=== PATIENT | female | born 1970 | race Caucasian/White ===

== ENCOUNTER → 2018-06-12 | Outpatient (CLI) | payer OTHER ==
[~2018-06-12] MED LIST: ACET500 PO; CODACE30 PO; IBUP800 PO; Ultram50 MG PO
[2018-06-14 16:08] LABS: HPV 16 Negative (Negative); HPV 18 Negative (Negative); HPV OTHER HR TYPES Negative (Negative)
== END ==
LOC: LAB 16:33 → LAB SHORT 16:33
PROVIDERS: Obstetrics & Gynecology
DX: Z01.419 Encounter for gynecological examination (general) (routine) without abnormal findings (principal)
CPT/HCPCS: 87624; G0123

== ENCOUNTER 2021-08-04 03:43 | Emergency (ER) | payer OTHER ==
[~2021-08-04] VITALS: Ht 167.6 cm; Wt 81.7 kg
[2021-08-04 04:17] LABS: Source, Urine Clean Catch
[2021-08-04 04:20] LABS: BASOPHILS ABSOLUTE AUTO 0.04 K/mm3 (0.00-0.23); BASOPHILS PERCENT AUTO 0 % (0-2); EOSINOPHILS ABSOLUTE AUTO 0.06 K/mm3 (0.00-0.68); EOSINOPHILS PERCENT AUTO 1 % (0-6); Hematocrit 36.2 % (33.0-51.0); Hemoglobin 10.9 g/dL (11.5-16.0); IMMATURE GRAN ABSOLUTE AUTO 0.04 K/mm3 (0.00-0.10); IMMATURE GRAN PERCENT AUTO 0 % (0-1); LYMPHOCYTES ABSOLUTE AUTO 1.28 K/mm3 (0.84-5.20); LYMPHOCYTES PERCENT AUTO 11 % (21-46); MONOCYTES ABSOLUTE AUTO 0.56 K/mm3 (0.16-1.47); MONOCYTES PERCENT AUTO 5 % (4-13); Mean Corpuscular HGB 22.2 pg (26.0-34.0); Mean Corpuscular HGB Conc 30.1 g/dL (31.5-36.5); Mean Corpuscular Volume 74 fL (80-100); Mean Platelet Volume 10.6 fL (9.1-12.4); NEUTROPHILS PERCENT AUTO 82 % (41-73); Platelet Count 291 K/mm3 (150-400); RDW Coefficient Variation 15.9 % (11.7-14.2); RDW Standard Deviation 42.2 fL (35.1-46.3); White Blood Cell Count 11.18 K/mm3 (4.00-11.30)
[2021-08-04 04:30] LABS: Bilirubin, Urine Neg (Neg); Blood, Urine 4+ (Neg); Glucose Qualitative, Urine Neg (Neg); Ketones, Urine 3+ (Neg); Leukocyte Esterase, Urine Neg (Neg); Nitrite, Urine Neg (Neg); Protein, Urine Neg (Neg); Urobilinogen, Urine NORM (Normal)
[2021-08-04 04:40] LABS: Alanine Aminotransfer (ALT/SGP 28 U/L (12-78); Albumin, Blood 3.5 g/dL (3.4-5.0); Albumin/Globulin Ratio 0.9 (0.8-1.8); Alk Phos 60 U/L (50-136); Anion Gap 7 mmol/L (6-16); Aspartate Aminotrans (AST/SGOT 17 U/L (12-37); Bilirubin, Total 0.3 mg/dL (0.1-1.0); Blood Urea Nitrogen 25 mg/dL (8-24); CO2, Blood 22 mmol/L (21-32); Calcium, Blood 8.9 mg/dL (8.5-10.1); Chloride, Blood 110 mmol/L (98-108); Creatinine, Blood 0.71 mg/dL (0.40-1.00); Globulin, Blood 3.9 g/dL (2.2-4.0); Glomerular Filtration Rate >60 (60-); Glucose, Blood 125 mg/dL (70-99); Sodium, Blood 139 mmol/L (136-145); Total Protein, Blood 7.4 g/dL (6.4-8.2)
[2021-08-04 04:53] LABS: Appearance, Urine Clear (Clear); Color, Urine Yellow (P-Yellow)
[2021-08-04 04:54] LABS: Amorphous Light (0-Heavy); Bacteria Few /hpf; Mucus Light (0-Heavy); Squamous Epithelial Cells Few /hpf (Few); White Blood Cells, Urine Rare /hpf (0-5)
[2021-08-04] MEDS ORDERED: IBU600 MG PO (05:46)
[2021-08-04 07:01] LABS: Candida species (DNA Probe) Negative (NEGATIVE); G. vaginalis (DNA Probe) Positive (NEGATIVE); T. vaginalis (DNA Probe) Negative (NEGATIVE)
== END 2021-08-04 06:29 | disposition home or self-care (01) ==
LOC: ER 03:43
PROVIDERS: Emergency Medicine
DX: D25.9 Leiomyoma of uterus, unspecified (principal); Z87.891 Personal history of nicotine dependence
CPT/HCPCS: 36415; 76856; 80053; 81001; 81025; 83605; 85025; 87480; 87510; 87660; J1885; J7030

== ENCOUNTER 2021-08-10 22:41 | Emergency (ER) | payer OTHER ==
[~2021-08-10] VITALS: Ht 167.6 cm; Wt 81.7 kg
[~2021-08-10 22:41] MED LIST changes: +IBU600 MG PO
[2021-08-10] MEDS ORDERED: FLAGYL500 M1 PO (23:36)
== END 2021-08-11 01:19 | disposition home or self-care (01) ==
LOC: ER 22:41
DX: D25.9 Leiomyoma of uterus, unspecified (principal); N76.0 Acute vaginitis; B96.89 Other specified bacterial agents as the cause of diseases classified elsewhere; Z87.891 Personal history of nicotine dependence
CPT/HCPCS: 96374; 99283-25; A9270; J2270

== ENCOUNTER 2021-08-15 05:34 | Emergency (ER) | payer OTHER ==
[~2021-08-15] VITALS: Ht 167.6 cm; Wt 81.7 kg
[~2021-08-15 05:34] MED LIST changes: +FLAGYL500 M1 PO
[2021-08-15 07:14] LABS: Source, Urine Clean Catch
[2021-08-15 07:18] LABS: BASOPHILS ABSOLUTE AUTO 0.04 K/mm3 (0.00-0.23); BASOPHILS PERCENT AUTO 0 % (0-2); EOSINOPHILS ABSOLUTE AUTO 0.08 K/mm3 (0.00-0.68); EOSINOPHILS PERCENT AUTO 1 % (0-6); Hematocrit 35.6 % (33.0-51.0); Hemoglobin 11.1 g/dL (11.5-16.0); IMMATURE GRAN ABSOLUTE AUTO 0.09 K/mm3 (0.00-0.10); IMMATURE GRAN PERCENT AUTO 1 % (0-1); LYMPHOCYTES ABSOLUTE AUTO 1.32 K/mm3 (0.84-5.20); LYMPHOCYTES PERCENT AUTO 10 % (21-46); MONOCYTES ABSOLUTE AUTO 1.42 K/mm3 (0.16-1.47); MONOCYTES PERCENT AUTO 11 % (4-13); Mean Corpuscular HGB 22.7 pg (26.0-34.0); Mean Corpuscular HGB Conc 31.2 g/dL (31.5-36.5); Mean Corpuscular Volume 73 fL (80-100); Mean Platelet Volume 10.5 fL (9.1-12.4); NEUTROPHILS PERCENT AUTO 77 % (41-73); Platelet Count 323 K/mm3 (150-400); RDW Coefficient Variation 15.7 % (11.7-14.2); RDW Standard Deviation 40.4 fL (35.1-46.3); Red Blood Cell Count 4.88 M/mm3 (3.80-5.20); White Blood Cell Count 12.65 K/mm3 (4.00-11.30)
[2021-08-15 07:27] LABS: Bilirubin, Urine Neg (Neg); Blood, Urine 5+ (Neg); Glucose Qualitative, Urine Neg (Neg); Ketones, Urine 4+ (Neg); Leukocyte Esterase, Urine 2+ (Neg); Nitrite, Urine Neg (Neg); Protein, Urine 2+ (Neg); Specific Gravity, Urine 1.015 (1.003-1.022); Urobilinogen, Urine NORM (Normal)
[2021-08-15 07:38] LABS: Alanine Aminotransfer (ALT/SGP 19 U/L (12-78); Albumin, Blood 3.1 g/dL (3.4-5.0); Albumin/Globulin Ratio 0.8 (0.8-1.8); Alk Phos 89 U/L (50-136); Anion Gap 11 mmol/L (6-16); Aspartate Aminotrans (AST/SGOT 22 U/L (12-37); Bilirubin, Total 0.5 mg/dL (0.1-1.0); Blood Urea Nitrogen 17 mg/dL (8-24); Bun/Creatinine Ratio 26.6 (12.0-20.0); CO2, Blood 20 mmol/L (21-32); Calcium, Blood 9.8 mg/dL (8.5-10.1); Chloride, Blood 108 mmol/L (98-108); Creatinine, Blood 0.64 mg/dL (0.40-1.00); Globulin, Blood 3.9 g/dL (2.2-4.0); Glomerular Filtration Rate >60 (60-); Glucose, Blood 98 mg/dL (70-99); Potassium, Blood 3.5 mmol/L (3.5-5.5); Sodium, Blood 139 mmol/L (136-145)
[2021-08-15 07:58] LABS: Appearance, Urine Hazy (Clear); Color, Urine Yellow (P-Yellow)
[2021-08-15 07:59] LABS: Bacteria Few /hpf; Red Blood Cells, Urine 50-100 /hpf (0-2); Squamous Epithelial Cells Few /hpf (Few)
[2021-08-15 08:00] LABS: Mucus Light (0-Heavy)
[2021-08-15] MEDS ORDERED: HYDMOR2 PO ×2 (09:15→09:17)
[2021-08-15] MEDS ORDERED: PROM25 PO ×2 (09:15→09:17)
== END 2021-08-15 09:24 | disposition home or self-care (01) ==
LOC: ER 05:34
PROVIDERS: Student in an Organized Health Care Education/Training Program
DX: C54.1 Malignant neoplasm of endometrium (principal); C77.1 Secondary and unspecified malignant neoplasm of intrathoracic lymph nodes; Z87.891 Personal history of nicotine dependence
CPT/HCPCS: 80053; 81001; 83690; 85025; 87086; 96374; 96375; 96376; 99284-25; J1170; J1885; J2405; J3010; J7030

== ENCOUNTER → 2021-08-17 | Outpatient (CLI) | payer OTHER ==
[~2021-08-17] MED LIST changes: +HYDMOR2 PO; +PROM25 PO
[2021-08-17 15:51] LABS: BASOPHILS ABSOLUTE AUTO 0.04 K/mm3 (0.00-0.23); BASOPHILS PERCENT AUTO 0 % (0-2); EOSINOPHILS PERCENT AUTO 1 % (0-6); Hematocrit 35.3 % (33.0-51.0); Hemoglobin 10.7 g/dL (11.5-16.0); IMMATURE GRAN PERCENT AUTO 1 % (0-1); LYMPHOCYTES ABSOLUTE AUTO 0.99 K/mm3 (0.84-5.20); LYMPHOCYTES PERCENT AUTO 9 % (21-46); MONOCYTES ABSOLUTE AUTO 1.34 K/mm3 (0.16-1.47); MONOCYTES PERCENT AUTO 12 % (4-13); Mean Corpuscular HGB 22.5 pg (26.0-34.0); Mean Corpuscular HGB Conc 30.3 g/dL (31.5-36.5); Mean Corpuscular Volume 74 fL (80-100); Mean Platelet Volume 11.2 fL (9.1-12.4); NEUTROPHILS ABSOLUTE AUTO 8.38 K/mm3 (1.96-9.15); NEUTROPHILS PERCENT AUTO 77 % (41-73); Platelet Count 338 K/mm3 (150-400); RDW Coefficient Variation 15.8 % (11.7-14.2); Red Blood Cell Count 4.76 M/mm3 (3.80-5.20); White Blood Cell Count 10.95 K/mm3 (4.00-11.30)
[2021-08-17 16:13] LABS: Alanine Aminotransfer (ALT/SGP 12 U/L (12-78); Albumin, Blood 2.6 g/dL (3.4-5.0); Albumin/Globulin Ratio 0.6 (0.8-1.8); Alk Phos 88 U/L (50-136); Anion Gap 8 mmol/L (6-16); Aspartate Aminotrans (AST/SGOT 25 U/L (12-37); Bilirubin, Total 0.2 mg/dL (0.1-1.0); Blood Urea Nitrogen 16 mg/dL (8-24); Bun/Creatinine Ratio 27.6 (12.0-20.0); CO2, Blood 21 mmol/L (21-32); Calcium, Blood 9.2 mg/dL (8.5-10.1); Chloride, Blood 110 mmol/L (98-108); Creatinine, Blood 0.58 mg/dL (0.40-1.00); Ferritin, Serum 15 ng/mL (8-252); Globulin, Blood 4.1 g/dL (2.2-4.0); Glomerular Filtration Rate >60 (60-); Glucose, Blood 98 mg/dL (70-99); Iron Serum 21 ug/dL (50-170); Lactate Dehydrogenase (Ld),Bld 454 U/L (100-240); Percent Saturation 7.5 % (15.0-50.0); Potassium, Blood 3.5 mmol/L (3.5-5.5); Sodium, Blood 139 mmol/L (136-145); Total Iron Binding Capacity 280 ug/dL (250-450); Total Protein, Blood 6.7 g/dL (6.4-8.2)
[2021-08-17 16:17] LABS: Carcinoembryonic Antigen 14.1 ng/mL (0.0-3.0)
[2021-08-17 16:25] LABS: Cancer Antigen 125 59.8 U/mL (1.5-35.0)
== END | disposition home or self-care (01) ==
LOC: LAB 15:00 → LAB SHORT 15:00
PROVIDERS: Registered Nurse Oncology
DX: C54.1 Malignant neoplasm of endometrium (principal); C77.2 Secondary and unspecified malignant neoplasm of intra-abdominal lymph nodes; C78.00 Secondary malignant neoplasm of unspecified lung; D50.9 Iron deficiency anemia, unspecified
CPT/HCPCS: 80053; 82378; 82728; 83540; 83550; 83615; 85025; 85651; 86304

== ENCOUNTER → 2021-08-19 | Outpatient (CLI) | payer OTHER ==
[~2021-08-19] MED LIST changes: +FENTANYL1 EA10 TD; +KLOR-CON 1010 ME5 PO; +ONDA4ODT SL; +OXYC5 PO; +PHENERGAN25 MG PR; +Phenergan25 M1 PO
[2021-08-19 11:00] LABS: Alanine Aminotransfer (ALT/SGP 13 U/L (12-78); Albumin, Blood 2.8 g/dL (3.4-5.0); Albumin/Globulin Ratio 0.6 (0.8-1.8); Alk Phos 90 U/L (50-136); Anion Gap 11 mmol/L (6-16); Aspartate Aminotrans (AST/SGOT 23 U/L (12-37); Bilirubin, Total 0.4 mg/dL (0.1-1.0); Blood Urea Nitrogen 18 mg/dL (8-24); CO2, Blood 21 mmol/L (21-32); Calcium, Blood 10.2 mg/dL (8.5-10.1); Chloride, Blood 106 mmol/L (98-108); Creatinine, Blood 0.53 mg/dL (0.40-1.00); Globulin, Blood 4.4 g/dL (2.2-4.0); Glomerular Filtration Rate >60 (60-); Glucose, Blood 122 mg/dL (70-99); Potassium, Blood 3.3 mmol/L (3.5-5.5); Sodium, Blood 138 mmol/L (136-145); Total Protein, Blood 7.2 g/dL (6.4-8.2)
== END | disposition home or self-care (01) ==
LOC: LAB 09:59 → LAB SHORT 09:59
PROVIDERS: Registered Nurse Oncology
DX: C54.1 Malignant neoplasm of endometrium (principal)
CPT/HCPCS: 80053

== ENCOUNTER 2021-08-23 02:36 | Inpatient (IN) | payer OTHER ==
[~2021-08-23] VITALS: Ht 167.6 cm; Wt 82.8 kg
[~2021-08-23 02:36] MED LIST changes: -FENTANYL1 EA10 TD; -KLOR-CON 1010 ME5 PO; -ONDA4ODT SL; -OXYC5 PO; -PHENERGAN25 MG PR; -Phenergan25 M1 PO
[2021-08-23] MEDS ORDERED: OXYC5 PO (04:16)
[2021-08-23] MEDS ORDERED: Phenergan25 M1 PO (04:17)
[2021-08-23] MEDS ORDERED: PHENERGAN25 MG PR (04:17)
[2021-08-23] MEDS ORDERED: FENTANYL1 EA10 TD (04:20)
[2021-08-23] MEDS ORDERED: ONDA4ODT SL (04:20)
[2021-08-23 04:28] LABS: BASOPHILS ABSOLUTE AUTO 0.06 K/mm3 (0.00-0.23); BASOPHILS PERCENT AUTO 0 % (0-2); EOSINOPHILS ABSOLUTE AUTO 0.07 K/mm3 (0.00-0.68); EOSINOPHILS PERCENT AUTO 1 % (0-6); Hematocrit 36.1 % (33.0-51.0); Hemoglobin 11.4 g/dL (11.5-16.0); IMMATURE GRAN ABSOLUTE AUTO 0.27 K/mm3 (0.00-0.10); IMMATURE GRAN PERCENT AUTO 2 % (0-1); LYMPHOCYTES ABSOLUTE AUTO 0.96 K/mm3 (0.84-5.20); LYMPHOCYTES PERCENT AUTO 6 % (21-46); MONOCYTES ABSOLUTE AUTO 1.63 K/mm3 (0.16-1.47); MONOCYTES PERCENT AUTO 11 % (4-13); Mean Corpuscular HGB 22.5 pg (26.0-34.0); Mean Corpuscular HGB Conc 31.6 g/dL (31.5-36.5); Mean Corpuscular Volume 71 fL (80-100); Mean Platelet Volume 10.3 fL (9.1-12.4); NEUTROPHILS ABSOLUTE AUTO 11.98 K/mm3 (1.96-9.15); NEUTROPHILS PERCENT AUTO 80 % (41-73); Platelet Count 371 K/mm3 (150-400); RDW Standard Deviation 40.8 fL (35.1-46.3); Red Blood Cell Count 5.06 M/mm3 (3.80-5.20); White Blood Cell Count 14.97 K/mm3 (4.00-11.30)
[2021-08-23 04:46] LABS: Alanine Aminotransfer (ALT/SGP 12 U/L (12-78); Albumin, Blood 2.8 g/dL (3.4-5.0); Albumin/Globulin Ratio 0.7 (0.8-1.8); Alk Phos 102 U/L (50-136); Anion Gap 11 mmol/L (6-16); Aspartate Aminotrans (AST/SGOT 32 U/L (12-37); Bilirubin, Total 0.3 mg/dL (0.1-1.0); Blood Urea Nitrogen 23 mg/dL (8-24); CO2, Blood 22 mmol/L (21-32); Calcium, Blood 10.7 mg/dL (8.5-10.1); Chloride, Blood 106 mmol/L (98-108); Creatinine, Blood 0.68 mg/dL (0.40-1.00); Globulin, Blood 4.3 g/dL (2.2-4.0); Glomerular Filtration Rate >60 (60-); Glucose, Blood 117 mg/dL (70-99); Potassium, Blood 3.6 mmol/L (3.5-5.5); Sodium, Blood 139 mmol/L (136-145); Total Protein, Blood 7.1 g/dL (6.4-8.2)
[2021-08-23 05:40] LABS: Source, Urine Clean Catch
[2021-08-23 05:45] LABS: Bilirubin, Urine Neg (Neg); Blood, Urine 5+ (Neg); Glucose Qualitative, Urine Neg (Neg); Ketones, Urine 1+ (Neg); Leukocyte Esterase, Urine 3+ (Neg); Nitrite, Urine Neg (Neg); Protein, Urine 2+ (Neg); Specific Gravity, Urine 1.025 (1.003-1.022); Urobilinogen, Urine NORM (Normal)
[2021-08-23 06:12] LABS: Color, Urine Yellow (P-Yellow)
[2021-08-23 06:19] LABS: Amorphous Light (0-Heavy); Appearance, Urine Hazy (Clear); Bacteria Few /hpf; Mucus Light (0-Heavy); Red Blood Cells, Urine 25-50 /hpf (0-2); Squamous Epithelial Cells Few /hpf (Few)
[2021-08-23 09:56] LABS: Influenza A, PCR NEGATIVE (NEGATIVE); Influenza B, PCR NEGATIVE (NEGATIVE); Resp Syncytial Virus, PCR NEGATIVE (NEGATIVE); SARS-Cov-2 (COVID-19) PCR, MMC NEGATIVE (NEGATIVE)
--- NOTE | 2021-08-23 14:11 | NUR ---
ADMISSION PATIENT ADMITTED FROM ER AT 1300. PATIENT WENT TO [facility] FIRST TO HAVE NEPHROSTOMY PLACED. BEDSIDE REPORT FROM [facility] NURSE STATES THEY WERE UNABLE TO PLACE NEPHROSTOMY, BUT WILL TAKE PATIENT LATER TODAY TO TRY AGAIN. PATIENT TO BE NPO. PATIENT SETTLED INTO ROOM. AT BEDSIDE. POST-OP VITALS STARTED. PATIENT RESTING COMFORTABLY.
--- NOTE | 2021-08-23 17:21 | NUR ---
SHIFT SUMMARY PATIENT ADMITTED FROM ER AT 1300. PATIENT WENT TO [facility] BEFORE COMING TO FLOOR. UNABLE TO PLACE NEPHROSTOMY. NURSE FROM [facility] SAID THEY WOULD TRY AGAIN LATER TODAY. PATIENT IS NPO. PATIENT HASNT BEEN TAKEN BACK YET. MEDICATED X1 FOR PAIN. PATIENT REPORTS FENTANYL PATCH AND PILL MAKE HER SICK. PATIENT DID GET IV FENTANYL IN [facility] AND REPORTED THAT BEING OKAY. DR. CENTENO CONSULTED TODAY. SHAWANDA FROM [facility] CONSULTED, GOING TO SEE PATIENT TOMORROW. PATIENT IS PLEASANT AND COOPERATIVE WITH CARE. PATIENT UP T0 BATHROOM WITH SBA.
--- NOTE | 2021-08-24 03:47 | NUR ---
SHIFT SUMMARY A/OX4, SBA TO BATHROOM. C/O MODERATE TO SEVERE PAIN TO ABD, FLANK, AND LOWER BACK. MEDICATED PER EMAR. NPO SINCE MIDNIGHT. VSS, NO ACUTE CHANGES AT THIS TIME. BED IN LOWEST POSITION WITH CALL LIGHT IN REACH. WILL CONTINUE TO MONITOR AND REPORT TO ONCOMING RN.
[2021-08-24 04:49] LABS: BASOPHILS ABSOLUTE AUTO 0.06 K/mm3 (0.00-0.23); BASOPHILS PERCENT AUTO 0 % (0-2); EOSINOPHILS ABSOLUTE AUTO 0.06 K/mm3 (0.00-0.68); EOSINOPHILS PERCENT AUTO 0 % (0-6); Hematocrit 31.5 % (33.0-51.0); Hemoglobin 9.7 g/dL (11.5-16.0); IMMATURE GRAN ABSOLUTE AUTO 0.18 K/mm3 (0.00-0.10); IMMATURE GRAN PERCENT AUTO 1 % (0-1); LYMPHOCYTES ABSOLUTE AUTO 0.99 K/mm3 (0.84-5.20); LYMPHOCYTES PERCENT AUTO 6 % (21-46); MONOCYTES ABSOLUTE AUTO 1.64 K/mm3 (0.16-1.47); MONOCYTES PERCENT AUTO 10 % (4-13); Mean Corpuscular HGB 22.4 pg (26.0-34.0); Mean Corpuscular HGB Conc 30.8 g/dL (31.5-36.5); Mean Corpuscular Volume 73 fL (80-100); Mean Platelet Volume 10.7 fL (9.1-12.4); NEUTROPHILS ABSOLUTE AUTO 12.96 K/mm3 (1.96-9.15); NEUTROPHILS PERCENT AUTO 82 % (41-73); Platelet Count 305 K/mm3 (150-400); RDW Coefficient Variation 16.3 % (11.7-14.2); RDW Standard Deviation 42.5 fL (35.1-46.3); Red Blood Cell Count 4.33 M/mm3 (3.80-5.20); White Blood Cell Count 15.89 K/mm3 (4.00-11.30)
[2021-08-24 05:54] LABS: Anion Gap 9 mmol/L (6-16); Blood Urea Nitrogen 19 mg/dL (8-24); Bun/Creatinine Ratio 21.7 (12.0-20.0); CO2, Blood 22 mmol/L (21-32); Calcium, Blood 9.8 mg/dL (8.5-10.1); Chloride, Blood 110 mmol/L (98-108); Creatinine, Blood 0.87 mg/dL (0.40-1.00); Glomerular Filtration Rate >60 (60-); Glucose, Blood 92 mg/dL (70-99); Potassium, Blood 3.9 mmol/L (3.5-5.5); Sodium, Blood 141 mmol/L (136-145)
--- NOTE | 2021-08-24 16:48 | NUR ---
SHIFT SUMMARY PT IS AOX4. PT MEDICATED FOR PAIN PER EMAR. HEAT AND COLD THERAPY USED T/O SHIFT. PT MEDICATED X1 FOR NAUSEA. PT DENIES SOB. PT IS SBA TO BATHROOM AND HAS BLOODY URINE-PHYSICIAN NOTIFIED DURING AM ROUNDS. PT HAD A VISITOR THIS ILANA. APPETITE IS POOR TO MODERATE DEPENDING ON NAUSEA. PT IS POTENTIALLY TRANSFERRING FOR NEPHROSTOMY TUBE PLACEMENT AND BIOPSY. PT HAD PROCEDURE FOR NEPHROSTOMY PLACEMENT THIS AM THAT WAS UNSUCCESSFUL. PT IS IN BED, CALL LIGHT IN REACH, LOW POSITION.
--- NOTE | 2021-08-25 03:26 | NUR ---
SHIFT SUMMARY A/OX4, SBA TO BATHROOM. C/O MODERATE PAIN TO ABD, FLANKS, AND LOWER BACK. MEDICATED PER EMAR. PT NPO SINCE MIDNIGHT, AWAITING BX WITH WONDERLY LATER TODAY. VSS, NO ACUTE CHANGES AT THIS TIME. BED IN LOWEST POSITION WITH CALL LIGHT IN REACH. WILL CONTINUE TO MONITOR AND REPORT TO ONCOMING RN.
[2021-08-25 06:09] LABS: BASOPHILS ABSOLUTE AUTO 0.05 K/mm3 (0.00-0.23); BASOPHILS PERCENT AUTO 0 % (0-2); EOSINOPHILS ABSOLUTE AUTO 0.14 K/mm3 (0.00-0.68); EOSINOPHILS PERCENT AUTO 1 % (0-6); Hematocrit 31.1 % (33.0-51.0); Hemoglobin 9.7 g/dL (11.5-16.0); IMMATURE GRAN ABSOLUTE AUTO 0.26 K/mm3 (0.00-0.10); IMMATURE GRAN PERCENT AUTO 2 % (0-1); LYMPHOCYTES ABSOLUTE AUTO 0.92 K/mm3 (0.84-5.20); LYMPHOCYTES PERCENT AUTO 6 % (21-46); MONOCYTES ABSOLUTE AUTO 1.54 K/mm3 (0.16-1.47); MONOCYTES PERCENT AUTO 10 % (4-13); Mean Corpuscular HGB 22.6 pg (26.0-34.0); Mean Corpuscular HGB Conc 31.2 g/dL (31.5-36.5); Mean Corpuscular Volume 72 fL (80-100); Mean Platelet Volume 10.9 fL (9.1-12.4); NEUTROPHILS ABSOLUTE AUTO 12.78 K/mm3 (1.96-9.15); NEUTROPHILS PERCENT AUTO 81 % (41-73); Platelet Count 318 K/mm3 (150-400); RDW Coefficient Variation 16.5 % (11.7-14.2); RDW Standard Deviation 42.6 fL (35.1-46.3); White Blood Cell Count 15.69 K/mm3 (4.00-11.30)
[2021-08-25 07:02] LABS: Anion Gap 9 mmol/L (6-16); Blood Urea Nitrogen 18 mg/dL (8-24); Bun/Creatinine Ratio 19.7 (12.0-20.0); CO2, Blood 23 mmol/L (21-32); Calcium, Blood 10.3 mg/dL (8.5-10.1); Chloride, Blood 107 mmol/L (98-108); Creatinine, Blood 0.92 mg/dL (0.40-1.00); Glomerular Filtration Rate >60 (60-); Glucose, Blood 89 mg/dL (70-99); Sodium, Blood 139 mmol/L (136-145)
[2021-08-25] MEDS ORDERED: KLOR-CON 1010 ME5 PO (16:21)
--- NOTE | 2021-08-25 17:50 | NUR ---
SUMMARY- PT A/O X4, INDEPENDANT TO BATHROOM. HAS BEEN VOIDING, INITIALLY HAD TROUBLE GETTING STREAM GOING THAN WAS ABLE TO VOID WITHOUT DIFFICULTY ALL OF SHIFT. TOLERATING MIN AMOUNTS OF SOLID FOOD, FLUIDS TAKING IN SUFFICIENT AMOUNTS. GIVEN REGLAN ONCE WITH LUNCH AND PM FOR MILD NAUSEA. IVF DC'D. PAIN THIS AM HARD TO CONTROL. CALLED DR PATE MID DAY AND GOT ADDITIONAL TORADOL ONE TIME DOSE. PAIN THEREAFTER SEEMED BETTER CONTROLLED WITH DILAUDID Q2-4. NAPPING LATTER AFTERNOON. S.O AT BEDSIDE ALL OF VISITING HOURS. .S. OF [place]I ORDERED PM AND PERFORMED AT BEDSIDE. [place] UNABLE TO GET PT TO OR TODAY FOR BX, PLAN TO PERFORM TOMORROW. ALSO DR LI SPOKE WITH DR CENTENO AND IS DECIDED TO DO ONLY THE UTERINE BX AND NOT THE LUNG BX. CALL PLACED TO DR MONTES TO NOTIFY HIM OF CANCELATION OF LUNG BX PROCEDURE. GIVEN LAXATIVE BISACODYL TABS AND SENEKOT, PT PASSING GAS BUT NO BM YET. ALSO DRINKING PRUNE JUICE.
--- NOTE | 2021-08-26 04:30 | NUR ---
LABORATORY SUPERVISOR SUMMARY PATIENT HAD A FAIR SHIFT. SHE STATED THAT TORADOL MANAGED HER PAIN BETTER AND REQUESTED THAT I GET ANOTHER ORDER FOR HER. THIS WAS ORDERED BY DR. GARCIA AND SAME WAS ADMINISTERED SHE ALSO HAD DILAUDID. NO OTHER COMPLAINT LODGED. WILL CONTINUE TO MONITOR HER.
[2021-08-26 05:18] LABS: BASOPHILS ABSOLUTE AUTO 0.05 K/mm3 (0.00-0.23); BASOPHILS PERCENT AUTO 0 % (0-2); EOSINOPHILS ABSOLUTE AUTO 0.19 K/mm3 (0.00-0.68); EOSINOPHILS PERCENT AUTO 1 % (0-6); Hematocrit 29.9 % (33.0-51.0); Hemoglobin 9.2 g/dL (11.5-16.0); IMMATURE GRAN ABSOLUTE AUTO 0.33 K/mm3 (0.00-0.10); IMMATURE GRAN PERCENT AUTO 2 % (0-1); LYMPHOCYTES ABSOLUTE AUTO 1.07 K/mm3 (0.84-5.20); LYMPHOCYTES PERCENT AUTO 7 % (21-46); MONOCYTES ABSOLUTE AUTO 1.68 K/mm3 (0.16-1.47); MONOCYTES PERCENT AUTO 11 % (4-13); Mean Corpuscular HGB 22.5 pg (26.0-34.0); Mean Corpuscular HGB Conc 30.8 g/dL (31.5-36.5); Mean Corpuscular Volume 73 fL (80-100); Mean Platelet Volume 10.6 fL (9.1-12.4); NEUTROPHILS ABSOLUTE AUTO 11.43 K/mm3 (1.96-9.15); NEUTROPHILS PERCENT AUTO 78 % (41-73); Platelet Count 278 K/mm3 (150-400); RDW Coefficient Variation 16.6 % (11.7-14.2); RDW Standard Deviation 43.5 fL (35.1-46.3); Red Blood Cell Count 4.08 M/mm3 (3.80-5.20); White Blood Cell Count 14.75 K/mm3 (4.00-11.30)
--- NOTE | 2021-08-26 19:32 | NUR ---
SUMMARY, PT A/O X4. PAIN CONTROLLED TODAY WITH TORADOL Q8 AND DILAUDID Q2-4. AMBULATES TO BATHROOM, STEADY WITH ADQ STRENGTH. STATES STATES SOFT BROWN BM APPROX SIZE OF GOLF BALL, ALSO PASSING GAS. DR OLIVER ATTEMPTED BX AND ABORTED OPERATION WHEN HE COULDN'T GO PAST CERVIX. PERFORMED POST PROCEDURE VS, KEPT O2 ON 3L, ENC PT TO BREATH, BREIF PERIODS OF APNEA WHEN RESTING. SMALL PINK DRAINAGE FROM VAG ON COLLINS, NO ACTIVE BLEDING NOT. PT DIET INCREASED SLOWLY TO TOLERATING GEN DINNER. AMBULATED TO BATHROOM AND SHOWERED PER REQUEST WITH HUSBANDS HELP.
--- NOTE | 2021-08-27 05:03 | NUR ---
QUALITY ASSURANCE SUPERVISOR BODY SUMMARY PATIENT HAD A FAIR SHIFT. SHE IS STILL IN PAINS WHICH SHE GOT NEEDED PAIN MEDICATION. HER V/S WERE STABLE. WILL CONTINUE TO MINTOR HER.
[2021-08-27 05:12] LABS: BASOPHILS ABSOLUTE AUTO 0.04 K/mm3 (0.00-0.23); BASOPHILS PERCENT AUTO 0 % (0-2); EOSINOPHILS ABSOLUTE AUTO 0.02 K/mm3 (0.00-0.68); EOSINOPHILS PERCENT AUTO 0 % (0-6); Hematocrit 29.1 % (33.0-51.0); IMMATURE GRAN ABSOLUTE AUTO 0.64 K/mm3 (0.00-0.10); IMMATURE GRAN PERCENT AUTO 3 % (0-1); LYMPHOCYTES ABSOLUTE AUTO 0.84 K/mm3 (0.84-5.20); LYMPHOCYTES PERCENT AUTO 4 % (21-46); MONOCYTES ABSOLUTE AUTO 2.18 K/mm3 (0.16-1.47); MONOCYTES PERCENT AUTO 11 % (4-13); Mean Corpuscular HGB 22.6 pg (26.0-34.0); Mean Corpuscular HGB Conc 30.9 g/dL (31.5-36.5); Mean Corpuscular Volume 73 fL (80-100); Mean Platelet Volume 10.7 fL (9.1-12.4); NEUTROPHILS ABSOLUTE AUTO 16.74 K/mm3 (1.96-9.15); NEUTROPHILS PERCENT AUTO 82 % (41-73); NRBC ABSOLUTE 0.02 K/mm3 (0.00-0.02); NRBC Auto 0.1 /100 WBC (0.0-0.2); Platelet Count 283 K/mm3 (150-400); RDW Coefficient Variation 16.5 % (11.7-14.2); RDW Standard Deviation 43.3 fL (35.1-46.3); Red Blood Cell Count 3.98 M/mm3 (3.80-5.20); White Blood Cell Count 20.46 K/mm3 (4.00-11.30)
--- NOTE | 2021-08-27 11:10 | NUR ---
PATIENT ALERT AND ORIENTED X4. NEURO WNL. DENIES NUMBNESS/TINGLING. DID EXPRESS SOME ANXIETY SURROUNDING NEW DIAGNOSIS OF CANCER AND POSSIBLE LUNG BIOPSY. ABLE TO MOVE ALL EXTREMITITES AND REPOSITION SELF IN BED. UP TO BATHROOM INDEP. LUNGS SOUNDING CLEAR AND DIM IN BASES. DENIES SOB. NO TELE, BP AND HR STABLE. DENIES CHEST PAIN/PRESSURE. COMPLAINS OF 4/10 LOWER ABDOMINAL/BACK PAIN THIS AM. MEDICATED PER EMAR WITH GOOD RELIEF. DENIES OTHER PAINS. INTERMITTENT NAUSEA RELIEVED WITH ZOFRAN. EATING WELL AND DRINKING FLUIDS THIS AM. PATIENT STATES SHE HAD A LARGE BOWEL MOVEMENT LAST NIGHT THAT RELIEVED SOME OF HER PAIN. STOOL SOFTNER GIVEN THIS AM. URINATING, BUT AT TIMES STATES SHE IS UNABLE TO FULLY EMPTY BLADDER. BLADDER SCAN ORDER THIS AM, SCAN SHOWING 230ML. WILL CONTINUE TO MONITOR. DENIES NEEDS AT THIS TIME.
--- NOTE | 2021-08-27 16:23 | NUR ---
08/27/21 1623 Kathy Samuels VERIFICATIONS: EDIT CHART.
--- NOTE | 2021-08-27 18:45 | NUR ---
SHIFT SUMMARY: PATIENT REMAINS ALERT AND ORIENTED X4. NO ACUTE CHANGES. TRYING TO CONTROL PAIN THROUGHOUT SHIFT. PATIENT SEEMS TO DO BETTER WITH PAIN MANAGEMENT WITH BOTH DILAUDID AND TORDAL 2 HOURS APART. COMPLAINS OF BLOATING IN STOMACH. AT BEDSIDE. EATING AND DRINKING ON AND OFF. URINATING, INDEPEND TO BATHROOM. MEASURING URINE. PATIENT STATED SHE FEELS "A CRAMP IN ABDOMEN AND EXPELLS PINK LIQUID". ATTENDS IN PLACE. THIS RN ASKED PATIENT NEXT TIME THIS HAPPENS TO SAVE ATTENDS SO STAFF CAN SEE. VITAL SIGNS REMAIN STABLE. WILL REPORT OFF TO ONCOMING RN.
[2021-08-28] MEDS ORDERED: TRAM50 PO (00:40)
[2021-08-28] MEDS ORDERED: PREG200 PO (00:41)
--- NOTE | 2021-08-28 03:27 | NUR ---
STUDIO ARTIST SUMMARY PATIENT HAD A LONG NIGHT, STATED PAIN NOT CONTROLLED, SHE WAS REQUESTING THE FREQUENCY OF HER PAIN MEDICATION TO BE INCREASED. I EXPLAINED THAT SHE IS BEING PREPPED FOR DISCHARGE. SHE INITIALLY REFUSED THE ORAL PAIN MED THAT IS SCHEDULED ON GROUNDS THAT IT CAUSES HER TO FEEL NAUSEUOS,AND DOES NOT HELP WITH THE PAIN I LATER OFFERED HER NAUSEA MED TO HELP WITH THAT WHICH SHE AGREED TO. SHE WAS STILL CRYING IN PAIN AND I INFORMED THE ONCALL MARTÍN AQUINO WHO ORDERED FLEXERIL TO HELP SHE SAID PAIN IS CRAMPING. HER V/S ARE STABLE, WILL CONTINUE TO MONITOR HER.
[2021-08-28 04:52] LABS: Hematocrit 29.9 % (33.0-51.0); Mean Corpuscular HGB 22.2 pg (26.0-34.0); Mean Corpuscular HGB Conc 30.1 g/dL (31.5-36.5); Mean Corpuscular Volume 74 fL (80-100); Mean Platelet Volume 10.3 fL (9.1-12.4); Platelet Count 289 K/mm3 (150-400); RDW Coefficient Variation 16.8 % (11.7-14.2); RDW Standard Deviation 43.8 fL (35.1-46.3); Red Blood Cell Count 4.06 M/mm3 (3.80-5.20); White Blood Cell Count 19.15 K/mm3 (4.00-11.30)
[2021-08-28 05:39] LABS: BAND PERCENT MAN 2 % (0-8); BASOPHILS PERCENT MAN 0 % (0-2); EOSINOPHILS ABSOLUTE MAN 0.19 K/mm3 (0.00-0.68); EOSINOPHILS PERCENT MAN 1 % (0-6); LYMPHOCYTES ABSOLUTE MAN 0.76 K/mm3 (0.84-5.20); LYMPHOCYTES PERCENT MAN 4 % (21-46); METAMYELOCYTE ABSOLUTE MAN 0.19 K/mm3 (0.00-0.00); METAMYELOCYTE PERCENT MAN 1 % (0-0); MONOCYTES ABSOLUTE MAN 1.72 K/mm3 (0.16-1.47); MONOCYTES PERCENT MAN 9 % (4-13); MYELOCYTE ABSOLUTE MAN 0.19 K/mm3 (0.00-0.00); MYELOCYTE PERCENT MAN 1 % (0-0); NEUTROPHILS ABSOLUTE MAN 16.08 K/mm3 (1.96-9.15); SEG NEUTROPHILS PERCENT MAN 82 % (41-73); TOTAL CELLS COUNTED 100
--- NOTE | 2021-08-28 17:08 | NUR ---
SUMMARY PT SITTING UP IN BED VISTING WITH HER SPOUSE, PT HAS BEEN PLEASANT AND COOPERATIVE WITH CARE T/O THE DAY, PT MED PER EMAR FOR PAIN AND NAUSEA, PT UP TO THE BATHROOM WITH MIN ASSIST, PT HOPEFUL TO DC HOME TOMORROW, VSS, NO COMPLAINTS, WILL CONT TO MONITOR
--- NOTE | 2021-08-29 04:25 | NUR ---
PATIENT HAS RESTED OFF AND ON DURING THE NIGHT. DESPITE RECEIVING PRN PAIN MEDS PAIN IS NOT CONTROLLED. VITALS REVIEWED. WILL CONTINUE TO MONITOR,
[2021-08-29 04:50] LABS: BASOPHILS ABSOLUTE AUTO 0.07 K/mm3 (0.00-0.23); BASOPHILS PERCENT AUTO 0 % (0-2); EOSINOPHILS ABSOLUTE AUTO 0.22 K/mm3 (0.00-0.68); EOSINOPHILS PERCENT AUTO 1 % (0-6); Hematocrit 31.3 % (33.0-51.0); Hemoglobin 9.4 g/dL (11.5-16.0); IMMATURE GRAN ABSOLUTE AUTO 1.05 K/mm3 (0.00-0.10); IMMATURE GRAN PERCENT AUTO 6 % (0-1); LYMPHOCYTES ABSOLUTE AUTO 1.36 K/mm3 (0.84-5.20); LYMPHOCYTES PERCENT AUTO 7 % (21-46); MONOCYTES ABSOLUTE AUTO 1.93 K/mm3 (0.16-1.47); MONOCYTES PERCENT AUTO 11 % (4-13); Mean Corpuscular HGB 22.3 pg (26.0-34.0); Mean Corpuscular Volume 74 fL (80-100); Mean Platelet Volume 10.3 fL (9.1-12.4); NEUTROPHILS ABSOLUTE AUTO 13.63 K/mm3 (1.96-9.15); NEUTROPHILS PERCENT AUTO 75 % (41-73); NRBC ABSOLUTE 0.03 K/mm3 (0.00-0.02); NRBC Auto 0.2 /100 WBC (0.0-0.2); Platelet Count 271 K/mm3 (150-400); RDW Coefficient Variation 17.1 % (11.7-14.2); RDW Standard Deviation 45.1 fL (35.1-46.3); Red Blood Cell Count 4.22 M/mm3 (3.80-5.20); White Blood Cell Count 18.26 K/mm3 (4.00-11.30)
[2021-08-29 05:19] LABS: Bun/Creatinine Ratio 22.8 (12.0-20.0); Calcium, Blood 10.5 mg/dL (8.5-10.1); Creatinine, Blood 1.27 mg/dL (0.40-1.00); Potassium, Blood 4.9 mmol/L (3.5-5.5)
--- NOTE | 2021-08-29 07:49 | NUR ---
CAME ON SHIFT TO PATIENT IN PAIN, WRITHING IN BED, PT REPORTS THE PAIN IS IN HER R FLANK AND THAT IT COMES IN WAVES, MORNING MEDS GIVEN, PRN MEDS GIVEN, NO RELIEF, DR LI NOTIFIED, HE STATES HE WILL BE UP TO SEE THE PT
--- NOTE | 2021-08-29 17:32 | NUR ---
SUMMARY PT SITTING UP IN BED EATING DINNER WITH SPOUSE AT THE BEDSIDE, POOR APPETITE, PT HAS BEEN MED PER EMAR FOR PAIN AND NAUSEA, POOR PAIN MANAGEMENT TODAY, PAIN MEDS ADJUSTED BY MD, PT UP WITH MIN ASSIST TO THE BATHROOM, PLAN FOR ULTRASOUND GUIDED BIOPSY TOMORROW, PT HOPEFUL TO DC HOME SOON, VSS, WILL CONT TO MONITOR
--- NOTE | 2021-08-30 04:35 | NUR ---
PATIENT HAS BEEN AWAKE MOST OF THE NIGHT WITH PAIN TO ABDOMEN. DESPITE HAVING PAIN MEDCIATION FOR BREAKTHOUGH PATIENT SEEMS TO HAVE MINIMAL RELIEF. PATIENT URINATED APPROXIMATELY 1100 ML FOR THE ENTIRE SHIFT. VITALS REVIEWED.
[2021-08-30 04:39] LABS: BASOPHILS ABSOLUTE AUTO 0.06 K/mm3 (0.00-0.23); BASOPHILS PERCENT AUTO 0 % (0-2); EOSINOPHILS ABSOLUTE AUTO 0.11 K/mm3 (0.00-0.68); EOSINOPHILS PERCENT AUTO 1 % (0-6); Hemoglobin 9.3 g/dL (11.5-16.0); IMMATURE GRAN ABSOLUTE AUTO 1.13 K/mm3 (0.00-0.10); IMMATURE GRAN PERCENT AUTO 5 % (0-1); LYMPHOCYTES ABSOLUTE AUTO 1.04 K/mm3 (0.84-5.20); LYMPHOCYTES PERCENT AUTO 4 % (21-46); MONOCYTES ABSOLUTE AUTO 2.03 K/mm3 (0.16-1.47); MONOCYTES PERCENT AUTO 9 % (4-13); Mean Corpuscular HGB 22.2 pg (26.0-34.0); Mean Corpuscular Volume 74 fL (80-100); Mean Platelet Volume 9.8 fL (9.1-12.4); NEUTROPHILS ABSOLUTE AUTO 19.22 K/mm3 (1.96-9.15); NEUTROPHILS PERCENT AUTO 81 % (41-73); Platelet Count 248 K/mm3 (150-400); RDW Coefficient Variation 17.2 % (11.7-14.2); RDW Standard Deviation 44.9 fL (35.1-46.3); Red Blood Cell Count 4.19 M/mm3 (3.80-5.20); White Blood Cell Count 23.59 K/mm3 (4.00-11.30)
[2021-08-30 05:09] LABS: Bun/Creatinine Ratio 18.1 (12.0-20.0); Calcium, Blood 10.9 mg/dL (8.5-10.1); Creatinine, Blood 1.27 mg/dL (0.40-1.00); Potassium, Blood 5.2 mmol/L (3.5-5.5)
--- NOTE | 2021-08-30 08:20 | NUR ---
URINARY RETENTION PT REPORTED THE URGE TO VOID AND WAS UNABLE TO GO WHEN SHE ATTEMPTED. BLADDER SCAN SHOWED 465ML IN HER BLADDER. DR. NORWOOD NOTIFIED, HE ROUNDED ON PT. STRAIGHT CATH COMPLETED PER ORDER AND 700ML OF URINE EMPTIED. PLAN TO PLACE MAYA CATH IF PT REMAINS UNABLE TO VOID.
--- NOTE | 2021-08-30 09:16 | NUR ---
PT WENT TO IMAGING AT THIS TIME FOR LYMPH NODE BIOPSY. PER ISAEL BAKER IN IMAGING NO NEED FOR COAGULATION LABS PRIOR TO BIOPSLY.
[2021-08-30 17:13] LABS: Source, Urine Clean Catch
[2021-08-30 17:32] LABS: Appearance, Urine Clear (Clear); Bilirubin, Urine Neg (Neg); Blood, Urine Neg (Neg); Color, Urine Yellow (P-Yellow); Glucose Qualitative, Urine Neg (Neg); Ketones, Urine Neg (Neg); Leukocyte Esterase, Urine Neg (Neg); Nitrite, Urine Neg (Neg); Protein, Urine Neg (Neg); Specific Gravity, Urine 1.015 (1.003-1.022); Urobilinogen, Urine NORM (Normal)
--- NOTE | 2021-08-30 19:25 | NUR ---
SHIFT SUMMARY PT REMAINS IN THE HOSPITAL FOR PAIN MANAGEMENT. SHE HAD SOME URINARY RETENTION, WHICH WAS MANAGED WITH A STRAIGHT CATH THIS AM AND A MAYA CATH WAS PLACED THIS EVENING. PT HAS BEEN INDEPENDENT IN THE ROOM. PLAN FOR DISCHARGE TOMORROW AND F/U WITH UROLOGY IN [place] TOMORROW. REPORT GIVEN TO CARMEN ALSTON.
--- NOTE | 2021-08-31 03:59 | NUR ---
PATIENT WAS HAVING A DIFFICULT TIME WITH PAIN RELIEF. PATIENT IS EXTREMELY ANXIOUS. SUCESSFULLY HAD A BM THIS SHIFT AND RESTED SOME AFTER. PATIENT IS TO DC TODAY.
[2021-08-31 05:35] LABS: BASOPHILS ABSOLUTE AUTO 0.06 K/mm3 (0.00-0.23); BASOPHILS PERCENT AUTO 0 % (0-2); EOSINOPHILS ABSOLUTE AUTO 0.21 K/mm3 (0.00-0.68); EOSINOPHILS PERCENT AUTO 1 % (0-6); Hematocrit 31.4 % (33.0-51.0); Hemoglobin 9.3 g/dL (11.5-16.0); IMMATURE GRAN ABSOLUTE AUTO 1.07 K/mm3 (0.00-0.10); IMMATURE GRAN PERCENT AUTO 4 % (0-1); LYMPHOCYTES ABSOLUTE AUTO 1.19 K/mm3 (0.84-5.20); LYMPHOCYTES PERCENT AUTO 5 % (21-46); MONOCYTES ABSOLUTE AUTO 2.15 K/mm3 (0.16-1.47); MONOCYTES PERCENT AUTO 9 % (4-13); Mean Corpuscular HGB 21.8 pg (26.0-34.0); Mean Corpuscular HGB Conc 29.6 g/dL (31.5-36.5); Mean Corpuscular Volume 74 fL (80-100); Mean Platelet Volume 10.7 fL (9.1-12.4); NEUTROPHILS ABSOLUTE AUTO 20.11 K/mm3 (1.96-9.15); NEUTROPHILS PERCENT AUTO 81 % (41-73); Platelet Count 254 K/mm3 (150-400); RDW Coefficient Variation 17.2 % (11.7-14.2); RDW Standard Deviation 44.9 fL (35.1-46.3); Red Blood Cell Count 4.26 M/mm3 (3.80-5.20); White Blood Cell Count 24.79 K/mm3 (4.00-11.30)
[2021-08-31 06:30] LABS: Albumin, Blood 1.9 g/dL (3.4-5.0); Albumin/Globulin Ratio 0.5 (0.8-1.8); Bilirubin, Total 0.3 mg/dL (0.1-1.0); Bun/Creatinine Ratio 15.9 (12.0-20.0); Calcium, Blood 10.8 mg/dL (8.5-10.1); Creatinine, Blood 1.32 mg/dL (0.40-1.00); Globulin, Blood 3.8 g/dL (2.2-4.0); Potassium, Blood 5.1 mmol/L (3.5-5.5); Total Protein, Blood 5.7 g/dL (6.4-8.2)
--- NOTE | 2021-08-31 12:34 | NUR ---
PT TO IMAGING AT ABOUT [address], BACK TO UNIT AT 1145. VS TAKEN, NOTED TACHYPNEA, ELEVATED HR AND 99.[address] GRIFFITH NOTIFIED, SEE NEW ORDERS. PLAN TO GIVE TYLENOL, APPLY TELE. MAILS SUPERVISOR AWARE OF ORDED FOR TRANSFER TO PCU, AWAITING BED AVALABILITY. WILL CTM
--- NOTE | 2021-08-31 13:04 | NUR ---
TELE APPLIED AND BOX VERIFIED AT THIS TIME, SINUS TACH, SR 130-140'S PER TOP IRONER
--- NOTE | 2021-08-31 14:51 | NUR ---
TRANSFER: PT HAD UNMEASURED EMESIS AT ABOUT 1415, EMESIS BROWN AND LIQUID. PT GIVEN REGLAN, AND REPORTED NAUSEA SUBSIDED. OTHERWISE NO CHANGE IN PT STATUS SINCE LAST RN NOTE. MILK AND MOLASSESS ENEMA NOT GIVEN YET PER PT REQUEST, PT WANTED TO TRY MG CITRATE TO HAVE BM BEFORE ENEMA. REPORT PASSED TO HEAVEN ELECTRICAL TEST TECHNICIAN AND PT TO ROOM U 13 AT 1430, TRANSPORTED BY THIS RN AND ALECIA MORSE.
[2021-08-31 17:08] LABS: Influenza A, PCR NEGATIVE (NEGATIVE); Influenza B, PCR NEGATIVE (NEGATIVE); Resp Syncytial Virus, PCR NEGATIVE (NEGATIVE); SARS-Cov-2 (COVID-19) PCR, MMC NEGATIVE (NEGATIVE)
--- NOTE | 2021-08-31 17:28 | NUR ---
ASSUMPTION OF CARE. PT IS RESTING IN BED WITH AT THE BEDSIDE. SHE IS SCHEDULED TO COBRA TRANSFER WITHIN THE HOUR. IV FLUIDS ARE INFUSING ORDERED. THE CHARGE NURSE IS CALLING REPORT TO THE RECEIVING RN NOW. THE PT IS ABLE TO MAKE HER NEEDS KNOWN AND HAS HER CALL LIGHT IN REACH.
== END 2021-08-31 17:53 | disposition short-term general hospital (02) | DRG 853 ==
LOC: ER 02:36 → ERHOLD 10:21 → MEDS 10:21 → PCU 08-31 14:28
PROVIDERS: Emergency Medicine; Family Medicine; Internal Medicine; Nurse Practitioner Acute Care; Student in an Organized Health Care Education/Training Program; ADMIT Hospitalist
PROC: BT111ZZ Fluoroscopy of Right Kidney using Low Osmolar Contrast (ICD-10-PCS; 2021-08-23)
PROC: 0UJH8ZZ Inspection of Vagina and Cul-de-sac, Via Natural or Artificial Opening Endoscopic (ICD-10-PCS; 2021-08-26)
PROC: 07B23ZX Excision of Left Neck Lymphatic, Percutaneous Approach, Diagnostic (ICD-10-PCS; principal; 2021-08-30)
DX: A40.1 Sepsis due to streptococcus, group B (principal); J18.9 Pneumonia, unspecified organism; N39.0 Urinary tract infection, site not specified; C78.6 Secondary malignant neoplasm of retroperitoneum and peritoneum; C77.2 Secondary and unspecified malignant neoplasm of intra-abdominal lymph nodes; N17.9 Acute kidney failure, unspecified; C77.0 Secondary and unspecified malignant neoplasm of lymph nodes of head, face and neck; C54.1 Malignant neoplasm of endometrium; Z20.822 Contact with and (suspected) exposure to COVID-19; D50.9 Iron deficiency anemia, unspecified; K59.03 Drug induced constipation; T40.605A Adverse effect of unspecified narcotics, initial encounter; G89.29 Other chronic pain; R11.2 Nausea with vomiting, unspecified; N13.5 Crossing vessel and stricture of ureter without hydronephrosis; E83.52 Hypercalcemia; Z79.899 Other long term (current) drug therapy; Z98.51 Tubal ligation status; Z28.21 Immunization not carried out because of patient refusal
CPT/HCPCS: 0241U; 36415; 38505; 50430; 74176; 76770; 76937; 76942; 80048; 80053; 81001; 81003; 83605; 83690; 83735; 85025; 87040; 87086; 87147; 88305; 88341; 88342; 94760; 96365; 96375; 97166; 97535; 99152; 99153; 99285-25; A9270; C1769; C1894; J0696; J1100; J1170; J1644; J1885; J2250; J2405; J2704; J2765; J3010; J7030; J7040; J7042; J7120; Q9967